=== PATIENT | male | born 1980 | race African-American/Black ===

== ENCOUNTER 2017-12-27 06:35 | Inpatient (IN) | payer OTHER ==
[2017-12-27] MEDS: SOD CHLORIDE 0.9% 1,000 ML IV ×3 (05:30→13:26)
[2017-12-27] MEDS: CEFAZOLIN 2 GM/50 ML (PMX) 50 ML IVPB (05:30)
[2017-12-27] MEDS ORDERED: metroNIDAZOLE 500 MG/100 ML NS IVPB (07:00)
[2017-12-27] MEDS ORDERED: DEXAMETHASONE 4 MG/ML 1 ML INJ (07:00)
[2017-12-27] MEDS ORDERED: CEFAZOLIN 1 GM INJ (07:00)
[2017-12-27] MEDS ORDERED: ROCURONIUM 50 MG INJ (07:00)
[2017-12-27] MEDS ORDERED: METOCLOPRAMIDE 10 MG INJ (07:00)
[2017-12-27] MEDS ORDERED: MIDAZOLAM 1 MG/ML 2 ML INJ (07:27)
[2017-12-27] MEDS ORDERED: ONDANSETRON 4 MG INJ ×2 (07:28→11:55)
[2017-12-27] MEDS ORDERED: PROPOFOL 20 ML (07:28)
[2017-12-27] MEDS ORDERED: SUCCINYLCHOLINE CHLORIDE 100 MG/5 ML SYG IV (07:28)
[2017-12-27] MEDS ORDERED: LIDOCAINE 2% (SDV) 5 ML INJ (07:28)
[2017-12-27] MEDS ORDERED: FENTAnyl 50 MCG/ML VIAL (07:28)
[2017-12-27] MEDS: CIPROFLOXACIN 400MG/D5W 200 ML IVPB ×2 (11:28→22:43)
[2017-12-27] MEDS ORDERED: HYDROmorphONE 1 MG/5 ML IV SYRINGE IV ×2 (11:30→11:54)
[2017-12-27] MEDS ORDERED: NALOXONE (0.4 MG/ML) INJ IV (11:30)
[2017-12-27] MEDS ORDERED: FENTAnyl 50 MCG/ML VIAL IV ×2 (11:30)
[2017-12-27] MEDS: metroNIDAZOLE 500 MG/NS (PMX) 100 ML IVPB ×3 (11:30→21:46)
[2017-12-27] MEDS ORDERED: HYDROmorphONE 0.5 MG/0.5 ML SYG IV ×2 (11:30)
[2017-12-27] MEDS ORDERED: PROCHLORPERAZINE 10 MG INJ IV (11:30)
[2017-12-27] MEDS ORDERED: MEPERIDINE 25 MG INJ IV (11:30)
[2017-12-27] MEDS ORDERED: LABETALOL HCL 20MG INJ IV (11:30)
[2017-12-27] MEDS ORDERED: KETOROLAC 30 MG INJ IV (11:30)
[2017-12-27] MEDS ORDERED: hydrALAzine 20 MG INJ IV (11:30)
[2017-12-27] MEDS ORDERED: IPRATROPIUM (NEB) 0.5 MG/2.5 ML AMP HHN (11:30)
[2017-12-27] MEDS ORDERED: DIPHENHYDRAMINE 50 MG INJ IV (11:30)
[2017-12-27] MEDS ORDERED: ZOLPIDEM 5 MG TAB PO (11:30)
[2017-12-27 11:52] LABS: ADD MAN DIFF? NO
[2017-12-27] MEDS ORDERED: HYDROmorphONE 0.2 MG/ML PCA (11:54)
[2017-12-27 11:55] LABS: WHITE BLOOD COUNT 15.3 10^3/ul (4.8-10.8)
[2017-12-27 11:55] LABS: BASOPHIL # 0.1 10^3/ul (0.0-0.1); BASOPHILS % 0.3 % (0.0-2.0); EOSINOPHILS # 0.1 10^3/ul (0.0-0.5); EOSINOPHILS % 0.4 % (0.0-7.0); HEMATOCRIT 45.9 % (42.0-52.0); HEMOGLOBIN 15.1 g/dl (14.0-18.0); LYMPHOCYTES % 12.9 % (15.0-51.0); MEAN CORPUSCULAR HEMOGLOBIN 29.7 pg (29.0-33.0); MEAN CORPUSCULAR HGB CONC 32.9 g/dl (32.0-37.0); MEAN CORPUSCULAR VOLUME 90.4 fl (82.0-101.0); MEAN PLATELET VOLUME 9.1 fl (7.4-10.4); MONOCYTE # 0.8 10^3/ul (0.3-0.9); MONOCYTES % 4.9 % (0.0-11.0); NEUTROPHIL # 12.4 10^3/ul (1.6-7.5); NEUTROPHILS % 80.9 % (39.0-77.0); PLATELET COUNT 295 10^3/UL (140-415); RED BLOOD COUNT 5.08 10^6/ul (4.70-6.10); RED CELL DISTRIBUTION WIDTH 14.2 % (11.5-14.5)
[2017-12-27] MEDS: ONDANSETRON 4 MG INJ IV ×2 (12:00→17:17)
[2017-12-27] MEDS: HYDROmorphONE 1 MG/5 ML IV SYRINGE IV ×2 (12:05→12:15)
[2017-12-27] MEDS: HYDROmorphONE 0.2 MG/ML PCA IV ×2 (12:07→22:51)
[2017-12-27 12:10] LABS: HOLD TRANSMISSIONS 1
[2017-12-27 13:43] LABS: ALANINE AMINOTRANSFERASE 43 IU/L (13-69); ALBUMIN 4.2 g/dl (3.3-4.9); ALBUMIN/GLOBULIN RATIO 1.23; ALKALINE PHOSPHATASE 63 IU/L (42-121); ANION GAP 18 (8-16); ASPARTATE AMINO TRANSFERASE 27 IU/L (15-46); BILIRUBIN,INDIRECT 0.3 mg/dl (0-1.1); BILIRUBIN,TOTAL 0.3 mg/dl (0.2-1.3); BLOOD UREA NITROGEN 19 mg/dl (7-20); CALCIUM 8.6 mg/dl (8.4-10.2); CARBON DIOXIDE 16 mmol/L (21-31); CHLORIDE 112 mmol/L (97-110); CREATININE 1.25 mg/dl (0.61-1.24); GLUCOSE 139 mg/dl (70-220); SODIUM 141 mmol/L (135-144); TOTAL PROTEIN 7.6 g/dl (6.1-8.1)
[2017-12-27] MEDS: KETOROLAC 30 MG INJ IV ×2 (15:14→21:48)
[2017-12-27] MEDS: QUETIAPINE 100 MG TAB PO ×2 (20:28→21:00)
[2017-12-27] MEDS: DIPHENHYDRAMINE 50 MG INJ IV (20:28)
[2017-12-28] MEDS ORDERED: VITAMIN A & D 5 GM OINT PACKET TOP (00:24)
[2017-12-28] MEDS: ONDANSETRON 4 MG INJ IV (01:20)
[2017-12-28] MEDS: DIPHENHYDRAMINE 50 MG INJ IV ×2 (03:53→11:57)
[2017-12-28] MEDS: SOD CHLORIDE 0.9% 1,000 ML IV ×2 (03:53→17:59)
[2017-12-28] MEDS: KETOROLAC 30 MG INJ IV (03:53)
[2017-12-28] MEDS: clonAZEPAM 0.5 MG TAB PO ×2 (04:55→20:34)
[2017-12-28 05:48] LABS: ADD MAN DIFF? NO
[2017-12-28] MEDS: FLUOXETINE 20 MG CAP PO (05:56)
[2017-12-28] MEDS: metroNIDAZOLE 500 MG/NS (PMX) 100 ML IVPB ×3 (06:00→21:33)
[2017-12-28 06:05] LABS: BASOPHILS % 0.2 % (0.0-2.0); EOSINOPHILS % 0.3 % (0.0-7.0); HEMATOCRIT 39.9 % (42.0-52.0); HEMOGLOBIN 13.5 g/dl (14.0-18.0); LYMPHOCYTES # 1.3 10^3/ul (0.8-2.9); LYMPHOCYTES % 15.1 % (15.0-51.0); MEAN CORPUSCULAR HEMOGLOBIN 29.9 pg (29.0-33.0); MEAN CORPUSCULAR HGB CONC 33.8 g/dl (32.0-37.0); MEAN CORPUSCULAR VOLUME 88.5 fl (82.0-101.0); MEAN PLATELET VOLUME 9.2 fl (7.4-10.4); MONOCYTE # 0.9 10^3/ul (0.3-0.9); MONOCYTES % 10.7 % (0.0-11.0); NEUTROPHIL # 6.4 10^3/ul (1.6-7.5); NEUTROPHILS % 73.5 % (39.0-77.0); PLATELET COUNT 272 10^3/UL (140-415); RED BLOOD COUNT 4.51 10^6/ul (4.70-6.10); RED CELL DISTRIBUTION WIDTH 14.5 % (11.5-14.5)
[2017-12-28 06:05] LABS: WHITE BLOOD COUNT 8.7 10^3/ul (4.8-10.8)
[2017-12-28 06:38] LABS: ALANINE AMINOTRANSFERASE 40 IU/L (13-69); ALBUMIN 3.8 g/dl (3.3-4.9); ALBUMIN/GLOBULIN RATIO 1.22; ALKALINE PHOSPHATASE 53 IU/L (42-121); ANION GAP 14 (8-16); ASPARTATE AMINO TRANSFERASE 30 IU/L (15-46); BILIRUBIN,INDIRECT 0.4 mg/dl (0-1.1); BILIRUBIN,TOTAL 0.4 mg/dl (0.2-1.3); BLOOD UREA NITROGEN 16 mg/dl (7-20); CALCIUM 8.4 mg/dl (8.4-10.2); CARBON DIOXIDE 20 mmol/L (21-31); CHLORIDE 109 mmol/L (97-110); CREATININE 0.96 mg/dl (0.61-1.24); GLUCOSE 106 mg/dl (70-220); POTASSIUM 4.2 mmol/L (3.5-5.1); SODIUM 139 mmol/L (135-144); TOTAL PROTEIN 6.9 g/dl (6.1-8.1)
[2017-12-28] MEDS: HYDROmorphONE 0.2 MG/ML PCA IV ×2 (10:06→17:58)
[2017-12-28] MEDS: VENLAFAXINE (XR) 75 MG CAP PO (13:04)
[2017-12-28] MEDS: GABAPENTIN 400 MG CAP PO ×2 (13:13→20:34)
[2017-12-28] MEDS: traZODone 100 MG TAB PO (20:34)
[2017-12-29 06:10] LABS: ADD MAN DIFF? NO
[2017-12-29] MEDS: SOD CHLORIDE 0.9% 1,000 ML IV ×3 (06:12→16:33)
[2017-12-29] MEDS: metroNIDAZOLE 500 MG/NS (PMX) 100 ML IVPB ×3 (06:12→22:17)
[2017-12-29 06:15] LABS: WHITE BLOOD COUNT 5.2 10^3/ul (4.8-10.8)
[2017-12-29 06:15] LABS: BASOPHILS % 0.4 % (0.0-2.0); EOSINOPHILS # 0.3 10^3/ul (0.0-0.5); EOSINOPHILS % 5.4 % (0.0-7.0); HEMATOCRIT 36.3 % (42.0-52.0); HEMOGLOBIN 12.2 g/dl (14.0-18.0); LYMPHOCYTES # 1.5 10^3/ul (0.8-2.9); LYMPHOCYTES % 28.2 % (15.0-51.0); MEAN CORPUSCULAR HEMOGLOBIN 29.9 pg (29.0-33.0); MEAN CORPUSCULAR HGB CONC 33.6 g/dl (32.0-37.0); MEAN PLATELET VOLUME 9.5 fl (7.4-10.4); MONOCYTE # 0.5 10^3/ul (0.3-0.9); MONOCYTES % 9.7 % (0.0-11.0); NEUTROPHIL # 2.9 10^3/ul (1.6-7.5); NEUTROPHILS % 56.1 % (39.0-77.0); PLATELET COUNT 229 10^3/UL (140-415); RED BLOOD COUNT 4.08 10^6/ul (4.70-6.10); RED CELL DISTRIBUTION WIDTH 14.6 % (11.5-14.5)
[2017-12-29 06:54] LABS: ANION GAP 16 (8-16); BLOOD UREA NITROGEN 13 mg/dl (7-20); CALCIUM 8.1 mg/dl (8.4-10.2); CARBON DIOXIDE 21 mmol/L (21-31); CHLORIDE 105 mmol/L (97-110); CREATININE 0.83 mg/dl (0.61-1.24); GLUCOSE 86 mg/dl (70-220); POTASSIUM 4.1 mmol/L (3.5-5.1); SODIUM 138 mmol/L (135-144)
[2017-12-29] MEDS: clonAZEPAM 0.5 MG TAB PO ×2 (08:13→21:00)
[2017-12-29] MEDS: HYDROmorphONE 0.2 MG/ML PCA IV ×2 (08:13→18:55)
[2017-12-29] MEDS: GABAPENTIN 400 MG CAP PO ×3 (08:13→20:22)
[2017-12-29] MEDS: VENLAFAXINE (XR) 75 MG CAP PO (08:13)
[2017-12-29] MEDS: ONDANSETRON 4 MG INJ IV (08:25)
[2017-12-29] MEDS: KETOROLAC 30 MG INJ IV ×2 (09:40→20:22)
[2017-12-29] MEDS: LORAZEPAM 2 MG INJ IV ×2 (10:20→20:27)
[2017-12-29] MEDS: traZODone 100 MG TAB PO (20:22)
[2017-12-30] MEDS: metroNIDAZOLE 500 MG/NS (PMX) 100 ML IVPB ×3 (05:30→21:07)
[2017-12-30] MEDS: KETOROLAC 30 MG INJ IV (05:31)
[2017-12-30] MEDS: DIPHENHYDRAMINE 50 MG INJ IV ×3 (05:37→15:29)
[2017-12-30 05:53] LABS: ADD MAN DIFF? NO
[2017-12-30 06:18] LABS: BASOPHILS % 0.6 % (0.0-2.0); EOSINOPHILS # 0.5 10^3/ul (0.0-0.5); EOSINOPHILS % 11.2 % (0.0-7.0); HEMATOCRIT 36.3 % (42.0-52.0); HEMOGLOBIN 12.3 g/dl (14.0-18.0); LYMPHOCYTES # 1.3 10^3/ul (0.8-2.9); LYMPHOCYTES % 27.3 % (15.0-51.0); MEAN CORPUSCULAR HEMOGLOBIN 29.8 pg (29.0-33.0); MEAN CORPUSCULAR HGB CONC 33.9 g/dl (32.0-37.0); MEAN CORPUSCULAR VOLUME 87.9 fl (82.0-101.0); MEAN PLATELET VOLUME 9.7 fl (7.4-10.4); MONOCYTE # 0.5 10^3/ul (0.3-0.9); MONOCYTES % 10.1 % (0.0-11.0); NEUTROPHIL # 2.3 10^3/ul (1.6-7.5); NEUTROPHILS % 50.4 % (39.0-77.0); PLATELET COUNT 212 10^3/UL (140-415); RED BLOOD COUNT 4.13 10^6/ul (4.70-6.10); RED CELL DISTRIBUTION WIDTH 13.8 % (11.5-14.5)
[2017-12-30 06:18] LABS: WHITE BLOOD COUNT 4.7 10^3/ul (4.8-10.8)
[2017-12-30] MEDS: SOD CHLORIDE 0.9% 1,000 ML IV ×2 (08:28→16:48)
[2017-12-30] MEDS: GABAPENTIN 400 MG CAP PO ×3 (08:48→21:07)
[2017-12-30] MEDS: VENLAFAXINE (XR) 75 MG CAP PO (08:49)
[2017-12-30] MEDS: clonAZEPAM 0.5 MG TAB PO ×2 (08:49→21:07)
[2017-12-30 09:38] LABS: ADD UMIC YES; UR ASCORBIC ACID NEGATIVE (NEGATIVE); UR BILIRUBIN (Dip) NEGATIVE (NEGATIVE); UR BLOOD (Dip) NEGATIVE (NEGATIVE); UR CLARITY SLIGHTLY CLOUDY (CLEAR); UR COLOR AMBER (YELLOW); UR GLUCOSE (Dip) NEGATIVE (NEGATIVE); UR KETONES (Dip) 2+ mg/dL (NEGATIVE); UR LEUKOCYTE ESTERASE (Dip) 1+ Leu/ul (NEGATIVE); UR MUCUS MANY /HPF (NONE SEEN); UR NITRITE (Dip) NEGATIVE (NEGATIVE); UR RBC 0 /HPF (0-5); UR SPECIFIC GRAVITY (Dip) 1.035 (1.003-1.030); UR TOTAL PROTEIN (Dip) 1+ mg/dl (NEGATIVE); UR UROBILINOGEN (Dip) NEGATIVE (NEGATIVE); UR WBC 7 /HPF (0-5)
[2017-12-30] MEDS: HYDROmorphONE 0.2 MG/ML PCA IV ×2 (11:16→19:54)
[2017-12-30] MEDS: LORAZEPAM 2 MG INJ IV ×2 (11:36→22:01)
[2017-12-30 16:03] LABS: ANION GAP 10 (8-16); BLOOD UREA NITROGEN 11 mg/dl (7-20); CALCIUM 7.9 mg/dl (8.4-10.2); CARBON DIOXIDE 25 mmol/L (21-31); CHLORIDE 105 mmol/L (97-110); CREATININE 0.84 mg/dl (0.61-1.24); GLUCOSE 79 mg/dl (70-220); POTASSIUM 3.6 mmol/L (3.5-5.1); SODIUM 136 mmol/L (135-144)
[2017-12-30] MEDS: ONDANSETRON 4 MG INJ IV (17:01)
[2017-12-30] MEDS: traZODone 100 MG TAB PO (21:07)
[2017-12-31] MEDS: SOD CHLORIDE 0.9% 1,000 ML IV ×2 (05:12→14:28)
[2017-12-31] MEDS: DIPHENHYDRAMINE 50 MG INJ IV ×2 (05:14→21:12)
[2017-12-31] MEDS: metroNIDAZOLE 500 MG/NS (PMX) 100 ML IVPB ×3 (05:15→22:24)
[2017-12-31] MEDS: HYDROmorphONE 0.2 MG/ML PCA IV ×2 (07:49→15:19)
[2017-12-31] MEDS: GABAPENTIN 400 MG CAP PO ×3 (09:34→21:05)
[2017-12-31] MEDS: clonAZEPAM 0.5 MG TAB PO ×2 (09:34→21:05)
[2017-12-31] MEDS: VENLAFAXINE (XR) 75 MG CAP PO (09:34)
[2017-12-31] MEDS: KETOROLAC 30 MG INJ IV (12:57)
[2017-12-31] MEDS: LORAZEPAM 2 MG INJ IV (12:57)
[2017-12-31] MEDS: traZODone 100 MG TAB PO (21:05)
[2018-01-01] MEDS: HYDROmorphONE 0.2 MG/ML PCA IV (03:10)
[2018-01-01] MEDS: DIPHENHYDRAMINE 50 MG INJ IV ×3 (03:16→21:22)
[2018-01-01] MEDS: SOD CHLORIDE 0.9% 1,000 ML IV ×3 (03:18→21:30)
[2018-01-01] MEDS: AL HYDROX/MG HYDROX/SIMETH 30 ML CUP PO (05:00)
[2018-01-01] MEDS: metroNIDAZOLE 500 MG/NS (PMX) 100 ML IVPB ×3 (05:00→21:16)
[2018-01-01] MEDS: LORAZEPAM 2 MG INJ IV (05:22)
[2018-01-01] MEDS: GABAPENTIN 400 MG CAP PO ×3 (09:21→21:16)
[2018-01-01] MEDS: clonAZEPAM 0.5 MG TAB PO ×2 (09:22→21:16)
[2018-01-01] MEDS: VENLAFAXINE (XR) 75 MG CAP PO (09:22)
[2018-01-01] MEDS: HYDROmorphONE 0.5 MG/0.5 ML SYG IV ×3 (12:34→20:07)
[2018-01-01] MEDS: ONDANSETRON 4 MG INJ IV (13:21)
[2018-01-01] MEDS: HYDROCODONE/APAP (10/325) TAB PO (18:36)
[2018-01-01] MEDS: traZODone 100 MG TAB PO (21:16)
[2018-01-02] MEDS: HYDROmorphONE 0.5 MG/0.5 ML SYG IV ×7 (02:38→21:35)
[2018-01-02] MEDS: LORAZEPAM 2 MG INJ IV (03:08)
[2018-01-02] MEDS: metroNIDAZOLE 500 MG/NS (PMX) 100 ML IVPB ×3 (05:05→21:34)
[2018-01-02] MEDS: HYDROCODONE/APAP (10/325) TAB PO ×3 (05:05→16:50)
[2018-01-02] MEDS: DIPHENHYDRAMINE 50 MG INJ IV ×4 (06:02→22:49)
[2018-01-02] MEDS: GABAPENTIN 400 MG CAP PO ×3 (08:27→21:34)
[2018-01-02] MEDS: clonAZEPAM 0.5 MG TAB PO ×2 (08:27→21:34)
[2018-01-02] MEDS: VENLAFAXINE (XR) 75 MG CAP PO (08:27)
[2018-01-02] MEDS: SOD CHLORIDE 0.9% 1,000 ML IV ×2 (10:28→21:40)
[2018-01-02 11:02] LABS: ADD MAN DIFF? NO
[2018-01-02 11:04] LABS: BASOPHILS % 0.3 % (0.0-2.0); EOSINOPHILS # 0.5 10^3/ul (0.0-0.5); EOSINOPHILS % 7.9 % (0.0-7.0); HEMATOCRIT 34.4 % (42.0-52.0); HEMOGLOBIN 11.6 g/dl (14.0-18.0); LYMPHOCYTES # 1.4 10^3/ul (0.8-2.9); LYMPHOCYTES % 22.8 % (15.0-51.0); MEAN CORPUSCULAR HEMOGLOBIN 30.1 pg (29.0-33.0); MEAN CORPUSCULAR HGB CONC 33.7 g/dl (32.0-37.0); MEAN CORPUSCULAR VOLUME 89.4 fl (82.0-101.0); MEAN PLATELET VOLUME 9.1 fl (7.4-10.4); MONOCYTE # 0.7 10^3/ul (0.3-0.9); NEUTROPHIL # 3.5 10^3/ul (1.6-7.5); NEUTROPHILS % 57.4 % (39.0-77.0); PLATELET COUNT 247 10^3/UL (140-415); RED BLOOD COUNT 3.85 10^6/ul (4.70-6.10); RED CELL DISTRIBUTION WIDTH 14.5 % (11.5-14.5)
[2018-01-02 11:04] LABS: WHITE BLOOD COUNT 6.2 10^3/ul (4.8-10.8)
[2018-01-02] MEDS: traZODone 100 MG TAB PO (21:34)
[2018-01-03] MEDS: HYDROmorphONE 0.5 MG/0.5 ML SYG IV ×5 (01:51→17:34)
[2018-01-03] MEDS: DIPHENHYDRAMINE 50 MG INJ IV ×3 (03:17→14:59)
[2018-01-03] MEDS: metroNIDAZOLE 500 MG/NS (PMX) 100 ML IVPB (05:42)
[2018-01-03] MEDS: AL HYDROX/MG HYDROX/SIMETH 30 ML CUP PO ×2 (05:50→17:43)
[2018-01-03] MEDS: VENLAFAXINE (XR) 75 MG CAP PO (08:37)
[2018-01-03] MEDS: clonAZEPAM 0.5 MG TAB PO ×2 (08:38→21:34)
[2018-01-03] MEDS: GABAPENTIN 400 MG CAP PO ×3 (08:38→21:35)
[2018-01-03] MEDS: HYDROCODONE/APAP (10/325) TAB PO ×2 (10:53→16:06)
[2018-01-03] MEDS: LORAZEPAM 2 MG INJ IV (11:00)
[2018-01-03] MEDS: traZODone 100 MG TAB PO (21:33)
[2018-01-03] MEDS: HYDROCODONE/APAP (7.5/325) TAB PO (21:35)
[2018-01-04] MEDS: HYDROCODONE/APAP (7.5/325) TAB PO ×3 (04:28→13:10)
[2018-01-04] MEDS: DIPHENHYDRAMINE 25 MG CAP PO (06:38)
[2018-01-04] MEDS: clonAZEPAM 0.5 MG TAB PO (08:40)
[2018-01-04] MEDS: VENLAFAXINE (XR) 75 MG CAP PO (08:40)
[2018-01-04] MEDS: GABAPENTIN 400 MG CAP PO ×2 (08:41→13:13)
[2018-01-04 10:01] LABS: ADD MAN DIFF? NO
[2018-01-04 10:05] LABS: BASOPHILS % 0.5 % (0.0-2.0); EOSINOPHILS # 0.5 10^3/ul (0.0-0.5); EOSINOPHILS % 8.7 % (0.0-7.0); HEMATOCRIT 37.6 % (42.0-52.0); HEMOGLOBIN 12.5 g/dl (14.0-18.0); LYMPHOCYTES # 1.8 10^3/ul (0.8-2.9); LYMPHOCYTES % 30.1 % (15.0-51.0); MEAN CORPUSCULAR HEMOGLOBIN 29.1 pg (29.0-33.0); MEAN CORPUSCULAR HGB CONC 33.2 g/dl (32.0-37.0); MEAN CORPUSCULAR VOLUME 87.6 fl (82.0-101.0); MEAN PLATELET VOLUME 9.2 fl (7.4-10.4); MONOCYTE # 0.6 10^3/ul (0.3-0.9); MONOCYTES % 9.5 % (0.0-11.0); NEUTROPHILS % 50.4 % (39.0-77.0); NUCLEATED RED BLOOD CELLS% 0.3 /100WBC (0.0-0.0); PLATELET COUNT 300 10^3/UL (140-415); RED BLOOD COUNT 4.29 10^6/ul (4.70-6.10); RED CELL DISTRIBUTION WIDTH 14.5 % (11.5-14.5)
[2018-01-04] MEDS: SOD CHLORIDE 0.9% 1,000 ML IV (10:28)
[2018-01-04] MEDS: HYDROmorphONE 0.5 MG/0.5 ML SYG IV ×2 (10:31→15:40)
[2018-01-04 10:51] LABS: ANION GAP 11 (8-16); BLOOD UREA NITROGEN 9 mg/dl (7-20); CALCIUM 8.9 mg/dl (8.4-10.2); CARBON DIOXIDE 24 mmol/L (21-31); CHLORIDE 108 mmol/L (97-110); CREATININE 0.87 mg/dl (0.61-1.24); GLUCOSE 99 mg/dl (70-220); POTASSIUM 4.2 mmol/L (3.5-5.1); SODIUM 139 mmol/L (135-144)
== END 2018-01-04 18:10 | disposition home or self-care (01) | DRG 331 ==
LOC: SDS 06:35 → REC 10:30 → MS1 12:36
PROVIDERS: Surgery
PROC: 0WUF0KZ Supplement Abdominal Wall with Nonautologous Tissue Substitute, Open Approach (ICD-10-PCS; principal; 2017-12-27 07:28)
PROC: 0DTB0ZZ Resection of Ileum, Open Approach (ICD-10-PCS; 2017-12-27 07:28)
PROC: 0DN80ZZ Release Small Intestine, Open Approach (ICD-10-PCS; 2017-12-27 07:28)
PROC: 0DBB0ZZ Excision of Ileum, Open Approach (ICD-10-PCS; 2017-12-27 07:28)
DX: K43.5 Parastomal hernia without obstruction or gangrene (principal); K66.0 Peritoneal adhesions (postprocedural) (postinfection); F41.8 Other specified anxiety disorders
CPT/HCPCS: 80048; 80053; 81001; 85025; 87086; 88305

== ENCOUNTER 2018-08-30 13:20 | Emergency (ER) | payer OTHER | END 2018-08-30 13:58 | disposition home or self-care (01) | LOC: E/R 13:20 | DX: Z93.3 Colostomy status (principal); J45.909 Unspecified asthma, uncomplicated | CPT/HCPCS: 99282; Z7502 ==

== ENCOUNTER 2018-11-22 14:18 | Emergency (ER) | payer OTHER | END 2018-11-22 16:35 | disposition left against medical advice (07) | LOC: FTE 14:18 | DX: K94.09 Other complications of colostomy (principal); J45.909 Unspecified asthma, uncomplicated | CPT/HCPCS: 99282; Z7502 ==